=== PATIENT | female | born 1975 ===

== ENCOUNTER 2017-03-30 17:58 | Emergency (ER) | payer OTHER ==
[2017-03-30 18:04] VITALS: O2SAT 99
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
[2017-03-30 19:50] VITALS: BP 118/74; PULSE 74; RESP 15; TEMP 98.4
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
== END 2017-03-30 21:03 | disposition home or self-care (01) ==
LOC: H.ER 17:58
DX: S09.90XA Unspecified injury of head, initial encounter (principal); S20.219A Contusion of unspecified front wall of thorax, initial encounter; Y04.0XXA Assault by unarmed brawl or fight, initial encounter; Y92.89 Other specified places as the place of occurrence of the external cause